=== PATIENT | female | born 1965 | race Caucasian/White ===

== ENCOUNTER 2017-02-23 16:02 | Emergency (ER) | payer OTHER ==
[2017-02-23] MEDS ORDERED: CALCIUM500 M1 (16:09)
[2017-02-23] MEDS ORDERED: PRENATAL VITAM1 EACH (16:09)
[2017-02-23 17:16] VITALS: BP 93/56
[2017-02-23] MEDS ORDERED: AZILECT1 M1 PO (17:54)
== END 2017-02-23 17:16 | disposition home or self-care (01) ==
LOC: ED 16:02
DX: S61.210A Laceration without foreign body of right index finger without damage to nail, initial encounter (principal); W45.8XXA Other foreign body or object entering through skin, initial encounter; Y93.G3 Activity, cooking and baking; Y92.010 Kitchen of single-family (private) house as the place of occurrence of the external cause
CPT/HCPCS: 90715